=== PATIENT | male | born 1985 | race American Indian/Alaskan Native ===

== ENCOUNTER 2018-05-30 15:45 | Emergency (ER) | payer SELFPAY ==
[2018-05-30 16:46] VITALS: BP 120/85
--- NOTE | 2018-05-30 17:27 | Emergency Department Report ---
Minor Respiratory - HPI Chief Complaint: Upper Respiratory Infection Stated Complaint: BODY ACHES/CHILLS SWEATS Time Seen by Provider: 05/30/18 17:12 Duration: 3 Days Severity: moderate Minor Respiratory: Yes Rhinorrhea, Yes Sore Throat, Yes Able to Tolerate Fluids , Yes Cough (productive of yellow sputum), Yes Sick Contacts (spouse is sick as well), Yes Shortness of Breath, Yes Fever, No Ear Pain, No Hemoptysis, No Chest Pain ED Review of Systems ROS: Stated complaint: BODY ACHES/CHILLS SWEATS Other details as noted in HPI Comment: All other systems reviewed and negative ED Past Medical Hx - Past Medical History Previous Medical History?: No - Surgical History Past Surgical History?: No - Social History Smoking Status: Never Smoker - Medications Home Medications: Home Medications Medication Instructions Recorded Confirmed Last Taken Type ALBUTEROL Inhaler (OR & NICU) 2 puff IH QID PRN #1 inhalation 05/30/18 Unknown Rx [ProAir HFA Inhaler] Amoxicillin/Potassium Clav 1 each PO BID #14 tablet 05/30/18 Unknown Rx [Augmentin 875-125 Tablet] Benzonatate [Tessalon Perles] 100 mg PO Q8HR #10 capsule 05/30/18 Unknown Rx predniSONE [Deltasone] 20 mg PO QDAY #5 tab 05/30/18 Unknown Rx Minor Respiratory Exam - Exam General: Vital signs noted. No distress. Alert and acting appropriately. HEENT: Yes Pharyngeal Erythema, Yes Moist Mucous Membranes, No Pharyngeal Exudates, No Rhinorrhea, No Conjuctival Injection, No Frontal Tenderness, No Maxillary Tenderness Ear: Neither TM Bulge, Neither TM Erythema, Neither EAC Pain, Neither EAC Discharge Neck: Yes Supple, No Adenopathy Lungs: Yes Good Air Exchange, Yes Ronchi, Yes Cough, No Wheezes, No Stridor, No Labored Respirations, No Retractions, No Use of Accessory Muscles, No Other Abnormal Lung Sounds Heart: Yes Regular, No Murmur Abdomen: Yes Normal Bowel Sounds, No Tenderness, No Peritoneal Signs Skin: No Rash, No Edema Neurologic: Alert and oriented, no deficits. Musculoskeletal: Unremarkable. ED Course Vital Signs 05/30/18 16:44 Temperature 100.1 F H Pulse Rate 95 H Respiratory 16 Rate Blood Pressure 120/85 O2 Sat by Pulse 99 Oximetry ED Medical Decision Making - Medical Decision Making Be treated for acute bronchitis Critical care attestation.: If time is entered above; I have spent that time in minutes in the direct care of this critically ill patient, excluding procedure time. ED Disposition Clinical Impression: Acute bronchitis Qualifiers: Bronchitis organism: unspecified organism Qualified Code(s): J20.9 - Acute bronchitis, unspecified Disposition: DC-01 TO HOME OR SELFCARE Is pt being admited?: No Does the pt Need Aspirin: No Condition: Stable Instructions: Acute Bronchitis (ED) Time of Disposition: 17:28
[2018-05-30] MEDS ORDERED: DELTASONE PO ONE (17:40)
[2018-05-30] MEDS ORDERED: DELTASONE ONE (17:43)
== END 2018-05-30 17:28 | disposition home or self-care (01) ==
LOC: ED 15:45
DX: J20.9 Acute bronchitis, unspecified (principal)
CPT/HCPCS: 99282; J7512

== ENCOUNTER 2018-07-04 19:25 | Emergency (ER) | payer SELFPAY ==
[2018-07-04 20:07] VITALS: BP 120/78
[2018-07-04] MEDS ORDERED: MOTRIN PO ONE (20:09)
[2018-07-04] MEDS ORDERED: MOTRIN ONE (20:14)
--- NOTE | 2018-07-04 22:13 | XRay Report ---
FINAL REPORT EXAM: XR FOREARM RT HISTORY: fell and hurt right arm TECHNIQUE: Right forearm three views PRIORS: None. FINDINGS: No fracture is identified. The joint spaces are within normal limits. No focal bony lesion identified. No radiopaque foreign body seen. IMPRESSION: Negative no acute abnormality.
--- NOTE | 2018-07-04 22:13 | XRay Report ---
FINAL REPORT EXAM: XR HAND 2V RT HISTORY: fell and hurt right arm TECHNIQUE: 2 views right hand PRIORS: None. FINDINGS: No fracture is identified. No dislocation seen. Joint spaces are within normal limits. No erosive bony change identified. Carpal bones maintain normal alignment. Distal radius and ulna are intact. No radiopaque foreign bodies seen. IMPRESSION: Negative hand series
[2018-07-04] MEDS ORDERED: NORCO 5/325 PO ONE (22:30)
--- NOTE | 2018-07-04 22:35 | Emergency Department Report ---
ED Upper Extremity Inj HPI - General Chief Complaint: Extremity Injury, Upper Stated Complaint: RIGHT ELBOW PAIN Time Seen by Provider: 07/04/18 22:26 Source: patient Mode of arrival: Ambulatory Limitations: No Limitations - History of Present Illness Initial Comments: Patient's 33-year-old -Chinese male presents for right elbow forearm and hand pain status post ground-level fall states he tripped going up steps in his home today landing on his right elbow complaining of pain and tingling swelling right hand range of motion is intact however elicits pain there is no deformity laceration and bleeding pain is described as 6/10 MD Complaint: Injury to:: right, elbow, forearm, hand Other Extremity Injury: Elbow: Right Other Injuries: none Handedness: right Place: home Severity scale (0 -10): 5 Improves With: none Worsens With: movement of extremity Context: fall, direct blow Associated Symptoms: denies: weakness, numbness, heard/felt popping sensat - Related Data Previous Rx's Medication Instructions Recorded Last Taken Type ALBUTEROL Inhaler (OR & NICU) 2 puff IH QID PRN #1 inhalation 05/30/18 Unknown Rx [ProAir HFA Inhaler] Amoxicillin/Potassium Clav 1 each PO BID #14 tablet 05/30/18 Unknown Rx [Augmentin 875-125 Tablet] Benzonatate [Tessalon Perles] 100 mg PO Q8HR #10 capsule 05/30/18 Unknown Rx predniSONE [Deltasone] 20 mg PO QDAY #5 tab 05/30/18 Unknown Rx Cyclobenzaprine [Flexeril] 10 mg PO BID PRN #20 tablet 07/04/18 Unknown Rx Menthol/Camphor [[place] 1 applic TP BID PRN #1 tube 07/04/18 Unknown Rx Ointment] Naproxen [Naprosyn TAB] 500 mg PO BID PRN #30 tablet 07/04/18 Unknown Rx Allergies Allergy/AdvReac Type Severity Reaction Status Date / Time No Known Allergies Allergy Verified 05/30/18 16:46 ED Review of Systems ROS: Stated complaint: RIGHT ELBOW PAIN Other details as noted in HPI Constitutional: denies: chills, fever Eyes: denies: eye pain, eye discharge, vision change ENT: denies: ear pain, throat pain Respiratory: denies: cough, shortness of breath, wheezing Cardiovascular: denies: chest pain, palpitations Endocrine: no symptoms reported Gastrointestinal: denies: abdominal pain, nausea, diarrhea Genitourinary: denies: urgency, dysuria Musculoskeletal: myalgia. denies: back pain, joint swelling, arthralgia Skin: denies: rash, lesions Neurological: denies: headache, weakness, paresthesias Psychiatric: denies: anxiety, depression Hematological/Lymphatic: denies: easy bleeding, easy bruising ED Past Medical Hx - Past Medical History Previous Medical History?: Yes Hx Asthma: Yes - Surgical History Past Surgical History?: No - Social History Smoking Status: Current Every Day Smoker Substance Use Type: None - Medications Home Medications: Home Medications Medication Instructions Recorded Confirmed Last Taken Type ALBUTEROL Inhaler (OR & NICU) 2 puff IH QID PRN #1 inhalation 05/30/18 Unknown Rx [ProAir HFA Inhaler] Amoxicillin/Potassium Clav 1 each PO BID #14 tablet 05/30/18 Unknown Rx [Augmentin 875-125 Tablet] Benzonatate [Tessalon Perles] 100 mg PO Q8HR #10 capsule 05/30/18 Unknown Rx predniSONE [Deltasone] 20 mg PO QDAY #5 tab 05/30/18 Unknown Rx Cyclobenzaprine [Flexeril] 10 mg PO BID PRN #20 tablet 07/04/18 Unknown Rx Menthol/Camphor [[place] 1 applic TP BID PRN #1 tube 07/04/18 Unknown Rx Ointment] Naproxen [Naprosyn TAB] 500 mg PO BID PRN #30 tablet 07/04/18 Unknown Rx ED Physical Exam - General Limitations: No Limitations General appearance: alert, in no apparent distress - Head Head exam: Present: atraumatic, normocephalic - Eye Eye exam: Present: normal appearance - ENT ENT exam: Present: mucous membranes moist - Neck Neck exam: Present: normal inspection - Respiratory Respiratory exam: Present: normal lung sounds bilaterally. Absent: respiratory distress - Cardiovascular Cardiovascular Exam: Present: regular rate, normal rhythm. Absent: systolic murmur, diastolic murmur, rubs, gallop - GI/Abdominal GI/Abdominal exam: Present: soft, normal bowel sounds - Rectal Rectal exam: Present: deferred - Extremities Exam Extremities exam: Present: tenderness, normal capillary refill - Expanded Upper Extremity Exam Right Elbow exam: Present: tenderness, swelling, pain w/ pronation/supination, tenderness over radial head. Absent: abrasion, laceration, ecchymosis, deformity, crepidus, dislocation, erythema, effusion Forearm Wrist exam: Present: tenderness. Absent: swelling, abrasion, laceration , ecchymosis, deformity, crepidus, dislocation, erythema, tenderness over anatomical snuff box, pain with axial thumb loading Hand Wrist exam: Present: full ROM. Absent: tenderness Neuro motor exam: Present: wrist extension intact, thumb opposition intact, thumb IP flexion intact, thumb adduction intact, fingers 2-5 abduction intact Neurosensory exam: Present: 2-point discrimination, radial nerve intact, ulnar nerve intact, median nerve intact Vascular: Present: normal capillary refill, radial pulse, brachial pulse, ulnar pulse. Absent: vascular compromise, pulse deficit radial art, pulse deficit ulnar art, pulse deficit brachial art - Back Exam Back exam: Present: normal inspection, full ROM. Absent: tenderness, CVA tenderness (R), CVA tenderness (L), muscle spasm, paraspinal tenderness, vertebral tenderness, rash noted - Neurological Exam Neurological exam: Present: alert - Psychiatric Psychiatric exam: Present: normal affect, normal mood - Skin Skin exam: Present: warm, dry, intact, normal color. Absent: rash ED Course Vital Signs 07/04/18 20:01 Temperature 98.1 F Pulse Rate 117 H Respiratory 18 Rate Blood Pressure 120/78 O2 Sat by Pulse 100 Oximetry ED Medical Decision Making - Radiology Data Radiology results: report reviewed, image reviewed no fracture no soft tissue abnormality - Medical Decision Making this is an elbow strain no bursitis no effusion xray neg for fracture pain with rotation flexion and extension distal pulses intact motor room controller equal, pain with pronation supination, retail leader <3 sec bilat, plan georgina wrap elbow , nsaids, muscle relaxants, pt will follow up with pcp in 2-3 days. pt verbalized agreement and understanding of same. Critical care attestation.: If time is entered above; I have spent that time in minutes in the direct care of this critically ill patient, excluding procedure time. ED Disposition Clinical Impression: Knee sprain Qualifiers: Encounter type: initial encounter Involved ligament of knee: unspecified ligament Laterality: right Qualified Code(s): S83.91XA - Sprain of unspecified site of right knee, initial encounter Disposition: TO HOME OR SELFCARE Is pt being admited?: No Does the pt Need Aspirin: No Condition: Good Instructions: Elbow Sprain (ED), RICE Therapy (ED) Prescriptions: Cyclobenzaprine [Flexeril] 10 mg PO BID PRN #20 tablet PRN Reason: Muscle Spasm Menthol/Camphor [[place] Ointment] 1 applic TP BID PRN #1 tube PRN Reason: pain Naproxen [Naprosyn TAB] 500 mg PO BID PRN #30 tablet PRN Reason: pain Referrals: [facility] [Outside] - 3-5 Days Forms: Work/School Release Form(ED) Time of Disposition: 22:46
== END 2018-07-04 22:55 | disposition home or self-care (01) ==
LOC: ED 19:25
DX: S53.401A Unspecified sprain of right elbow, initial encounter (principal); F17.200 Nicotine dependence, unspecified, uncomplicated; J45.909 Unspecified asthma, uncomplicated; W01.0XXA Fall on same level from slipping, tripping and stumbling without subsequent striking against object, initial encounter; Y93.89 Activity, other specified; Y92.009 Unspecified place in unspecified non-institutional (private) residence as the place of occurrence of the external cause; Y99.8 Other external cause status
CPT/HCPCS: 99283

== ENCOUNTER 2019-04-12 18:38 | Emergency (ER) | payer SELFPAY ==
[2019-04-12 18:48] VITALS: BP 145/88
--- NOTE | 2019-04-12 20:42 | Emergency Department Report ---
ED ENT HPI - General Chief complaint: Earache Stated complaint: EAR PAIN (BOTH) Time Seen by Provider: 04/12/19 20:33 Source: patient Mode of arrival: Ambulatory Limitations: No Limitations - History of Present Illness Initial comments: 34-year-old male coming in for bilateral ear pain mostly with hearing loss and feeling like he tears or popping. Patient denies any fever chills or nausea no vomiting. Patient feels like his ears are clogged. MD complaint: ear pain Onset/Timin -: days(s) Location: R ear, L ear Quality: aching Consistency: intermittent Improves with: none Worsens with: none - Related Data Previous Rx's Medication Instructions Recorded Last Taken Type ALBUTEROL Inhaler (OR & NICU) 2 puff IH QID PRN #1 inhalation 05/30/18 Unknown Rx [ProAir HFA Inhaler] Amoxicillin/Potassium Clav 1 each PO BID #14 tablet 05/30/18 Unknown Rx [Augmentin 875-125 Tablet] Benzonatate [Tessalon Perles] 100 mg PO Q8HR #10 capsule 05/30/18 Unknown Rx predniSONE [Deltasone] 20 mg PO QDAY #5 tab 05/30/18 Unknown Rx Cyclobenzaprine [Flexeril] 10 mg PO BID PRN #20 tablet 07/04/18 Unknown Rx Menthol/Camphor [[place] 1 applic TP BID PRN #1 tube 07/04/18 Unknown Rx Ointment] Naproxen [Naprosyn TAB] 500 mg PO BID PRN #30 tablet 07/04/18 Unknown Rx Allergies Allergy/AdvReac Type Severity Reaction Status Date / Time No Known Allergies Allergy Verified 05/30/18 16:46 ED Dental HPI - General Chief complaint: Earache Stated complaint: EAR PAIN (BOTH) Time Seen by Provider: 04/12/19 20:33 Source: patient Mode of arrival: Ambulatory Limitations: No Limitations - Related Data Previous Rx's Medication Instructions Recorded Last Taken Type ALBUTEROL Inhaler (OR & NICU) 2 puff IH QID PRN #1 inhalation 05/30/18 Unknown Rx [ProAir HFA Inhaler] Amoxicillin/Potassium Clav 1 each PO BID #14 tablet 05/30/18 Unknown Rx [Augmentin 875-125 Tablet] Benzonatate [Tessalon Perles] 100 mg PO Q8HR #10 capsule 05/30/18 Unknown Rx predniSONE [Deltasone] 20 mg PO QDAY #5 tab 05/30/18 Unknown Rx Cyclobenzaprine [Flexeril] 10 mg PO BID PRN #20 tablet 07/04/18 Unknown Rx Menthol/Camphor [[place] 1 applic TP BID PRN #1 tube 07/04/18 Unknown Rx Ointment] Naproxen [Naprosyn TAB] 500 mg PO BID PRN #30 tablet 07/04/18 Unknown Rx Allergies Allergy/AdvReac Type Severity Reaction Status Date / Time No Known Allergies Allergy Verified 05/30/18 16:46 ED Review of Systems ROS: Stated complaint: EAR PAIN (BOTH) Other details as noted in HPI Comment: All other systems reviewed and negative ED Past Medical Hx - Past Medical History Previous Medical History?: Yes Hx Asthma: Yes - Surgical History Past Surgical History?: No - Social History Smoking Status: Current Every Day Smoker Substance Use Type: Marijuana - Medications Home Medications: Home Medications Medication Instructions Recorded Confirmed Last Taken Type ALBUTEROL Inhaler (OR & NICU) 2 puff IH QID PRN #1 inhalation 05/30/18 Unknown Rx [ProAir HFA Inhaler] Amoxicillin/Potassium Clav 1 each PO BID #14 tablet 05/30/18 Unknown Rx [Augmentin 875-125 Tablet] Benzonatate [Tessalon Perles] 100 mg PO Q8HR #10 capsule 05/30/18 Unknown Rx predniSONE [Deltasone] 20 mg PO QDAY #5 tab 05/30/18 Unknown Rx Cyclobenzaprine [Flexeril] 10 mg PO BID PRN #20 tablet 07/04/18 Unknown Rx Menthol/Camphor [[place] 1 applic TP BID PRN #1 tube 07/04/18 Unknown Rx Ointment] Naproxen [Naprosyn TAB] 500 mg PO BID PRN #30 tablet 07/04/18 Unknown Rx ED Physical Exam - General Limitations: No Limitations General appearance: alert, in no apparent distress - Head Head exam: Present: atraumatic, normocephalic - Eye Eye exam: Present: normal appearance - Expanded ENT Exam Expanded TM/Canal exam: Cerumen Impaction: Right TM, Left TM - Respiratory Respiratory exam: Present: normal lung sounds bilaterally - Neurological Exam Neurological exam: Present: alert, oriented X3 - Psychiatric Psychiatric exam: Present: normal affect, normal mood - Skin Skin exam: Present: warm, dry, intact, normal color. Absent: rash ED Course Vital Signs 04/12/19 18:46 Temperature 98.3 F Pulse Rate 77 Respiratory 20 Rate Blood Pressure 145/88 O2 Sat by Pulse 100 Oximetry ED Medical Decision Making - Medical Decision Making Patient's and evaluated by this provider a cc. He is a 34-year-old male comes in with bilateral cerumen impaction to both ears. Patient being discharged home with instructions to get [id number] earwax removal such as D Vinny's or generic brand. Patient to follow up with a primary care provider if the symptoms persist or gets worse. Critical care attestation.: If time is entered above; I have spent that time in minutes in the direct care of this critically ill patient, excluding procedure time. ED Disposition Clinical Impression: Impacted cerumen of both ears Disposition: DC-01 TO HOME OR SELFCARE Is pt being admited?: No Does the pt Need Aspirin: No Condition: Stable Instructions: Cerumen Impaction (ED) Additional Instructions: Get over the counter Debrox or Ear wax removal kit. Referrals: RITIKA BASHIR MD [Primary Care Provider] - 3-5 Days
== END 2019-04-12 20:46 | disposition home or self-care (01) ==
LOC: ED 18:38
DX: H61.23 Impacted cerumen, bilateral (principal)
CPT/HCPCS: 99282

== ENCOUNTER 2019-04-13 21:31 | Emergency (ER) | payer SELFPAY ==
--- NOTE | 2019-04-13 21:49 | Emergency Department Report ---
Blank Doc - Documentation Documentation: This is a 34-year-old male that presents with bilateral earwax impaction. Gladys ble to hear. This initial assessment/diagnostic orders/clinical plan/treatment(s) is/are subject to change based on patient's health status, clinical progression and re- assessment by fellow clinical providers in the ED. Further treatment and workup at subsequent clinical providers discretion. Patient/guardians urged not to elope from the ED as their condition may be serious if not clinically assessed and managed. Initial orders include: 1- Patient sent to [facility] for further evaluation and treatment
[2019-04-13] MEDS ORDERED: HYDROGEN PEROXIDE ONE ×2 (23:20→23:31)
--- NOTE | 2019-04-13 23:35 | Emergency Department Report ---
Chief Complaint: Earache Stated Complaint: BILATERAL EAR PAIN Time Seen by Provider: 04/13/19 21:48 - HPI History of Present Illness: Patient is a 34-year-old male who is presenting with bilateral cerumen impaction. Patient was here yesterday for same. The patient's condition has not changed. Patient did not try to follow up and find the cerumen impaction medication. - ROS Review of Systems: All other systems reviewed and negative - Exam Vital Signs: Vital Signs 04/13/19 21:35 Temperature 97.8 F Pulse Rate 61 Respiratory 18 Rate Blood Pressure 137/93 O2 Sat by Pulse 100 Oximetry Physical Exam: Patient with bilateral cerumen impaction. He is alert and oriented 3. MSE screening note: Focused history and physical exam performed. Due to findings the following was ordered: ED Medical Decision Making - Medical Decision Making and encouraged to get [id number] Cerumenex. Patient also can follow up with urgent care. Patient does not have medical emergency at this time. Patient be discharged home. ED Disposition for MSE Clinical Impression: Impacted cerumen of both ears Disposition: MED SCREENING EXAM-LEFT Is pt being admited?: No Does the pt Need Aspirin: No Condition: Stable Referrals: RITIKA BASHIR MD [Primary Care Provider] - 3-5 Days Time of Disposition: 23:35
[2019-04-14] MEDS ORDERED: HYDROGEN PEROXIDE TP ONE (00:06)
[2019-04-14] MEDS ORDERED: IBUPROFEN PO ONE ×2 (00:06→00:08)
[2019-04-14 00:08] VITALS: BP 120/86
== END 2019-04-14 00:42 | disposition left against medical advice (07) ==
LOC: ED 21:31
DX: H61.23 Impacted cerumen, bilateral (principal); J45.909 Unspecified asthma, uncomplicated
CPT/HCPCS: 99282